=== PATIENT | female | born 1935 | race Native Hawaiian/Other Pacific Islander ===

== ENCOUNTER 2016-11-23 08:40 | Outpatient (CLI) | payer OTHER ==
[~2016-11-23 08:40] MED LIST: CODEINE/APAP1 TAB OR; CYCL10TA35 PO; ELIQUIS2.5 MG OR; OMEPRAZOLE20 M1 OR; ONDA4TAB3 PO; XANAX XR0.5 MG OR
[2016-11-23 08:55] LABS: PLATELET COUNT 307 K/uL (152-353)
[2016-11-23 09:19] LABS: POTASSIUM 3.9 mmol/L (3.6-5.2); SODIUM 141 mmol/L (136-145)
== END 2016-11-23 19:32 | disposition home or self-care (01) ==
LOC: LABW 08:40
PROVIDERS: Internal Medicine Cardiovascular Disease
DX: E78.4 Other hyperlipidemia (principal); I48.91 Unspecified atrial fibrillation; Z79.899 Other long term (current) drug therapy; Z51.81 Encounter for therapeutic drug level monitoring
CPT/HCPCS: 36415; 80048; 80061; 80076; 85027

== ENCOUNTER 2017-03-16 16:19 | Observation (INO) | payer OTHER ==
[~2017-03-16] VITALS: Ht 160 cm; Wt 98.9 kg
[2017-03-16] VITALS (9 sets, daily range): BP systolic 142–189; BP diastolic 86–98; TEMP 97.6–99.4; Ht 160 cm; Wt 98.9 kg
[2017-03-16 17:00] LABS: PLATELET COUNT 310 K/uL (152-353)
[2017-03-16 17:01] LABS: POTASSIUM 3.6 mmol/L (3.6-5.2)
--- NOTE | 2017-03-16 22:45 | NUR ---
RECEIVED 82 YEAR OLD WHITE FEMALE TO [facility] VIA WHEELCHAIR FROM MEDICAL SURGICAL FLOOR FOR TELEMETRY MONITORING. PT HAD BARIUM SWALLOW AND CONTRAST AT [facility] ON [id number] UNDER THE SERVICES OF DR. CAROLINE WILKERSON. PT STATES SUJATHA MC NURSE PRACTITIONER TOLD HER TO EXPEL THE BARIUM SOON POSSIBE. WHILE ON COMMODE AT HOME SHE GOT WEAK, FELT FAINT AND COULD NOT SPEAK. PT BROUGHT TO [facility] ER BY EMS. PT STATES EMS WAS ROUGH AND HURT HER LEFT ARM. PT HAS BRUISING TO RIGHT FOREARM AND STATES IT IS VERY SORE. PT AWAKE AND ALERT ON ADMISSION.
[2017-03-17] VITALS: BP 180/96; TEMP 98.7
--- NOTE | 2017-03-17 00:27 | NUR ---
PT RESTING WITH EYES CLOSED. PT MOANS IN SLEEP, SMILING OCCAS. RESP RATE EVEN AND UNLABORED.
--- NOTE | 2017-03-17 00:38 | NUR ---
TO BEDSIDE BORIS WITH ASSISTANCE FROM NURSES.
--- NOTE | 2017-03-17 00:52 | NUR ---
PT EATING ALVIN CRACKERS AND COKE.
--- NOTE | 2017-03-17 01:28 | NUR ---
PT RESTING QUIETLY AT PRESENT.
[2017-03-17 01:30] VITALS: BP 160/70
--- NOTE | 2017-03-17 02:01 | NUR ---
PT STATES CAN'T TAKE THE PAIN OF THE B/P CUFF AND CANNOT TAKE THE PAIN FROM THE HEP LOCK. B/P CUFF REMOVED. PT STATES IT MADE HER NOT BE ABLE TO BREATH AND CHEST HURT. O2 SATURATION 99. PT PLACED ON O2 AT 2 LITERS FOR COMFORT AND TO REDUCE ANXIETY. RESPIRATORY THERAPIST PRESENT EKG
--- NOTE | 2017-03-17 04:45 | NUR ---
PT TO BEDSIDE COMMODE WITH ASSITANCE FROM NURSE. VOIDED 200CC'S URINE
--- NOTE | 2017-03-17 04:53 | NUR ---
PT MOVED TO BEDSIDE CHAIR FOR COMFORT.
--- NOTE | 2017-03-17 04:55 | NUR ---
PT WATCHING T.V. AT PRESENT.
[2017-03-17 06:48] LABS: PLATELET COUNT 279 K/uL (152-353)
[2017-03-17 07:03] LABS: POTASSIUM 3.1 mmol/L (3.6-5.2); SODIUM 142 mmol/L (136-145)
[2017-03-17 08:00] VITALS: BP 137/65; TEMP 97.6
--- NOTE | 2017-03-17 10:00 | NUR ---
PT ASSISTED ONTO BSC, BM NOTED. PT ALSO HAS HEMRRHOID.
--- NOTE | 2017-03-17 11:18 | NUR ---
PT RANG FOR ASSISTANCE, PT ASSITED ONTO BSC TO VOID, TOLERATED WELL. PT ENCOURAGED TO DRINK, PT GIVEN SIPS OF WATER
--- NOTE | 2017-03-17 12:08 | NUR ---
FAMILY AT BS
[2017-03-17] MEDS ORDERED: PROTONIX20 MG PO (12:46)
[2017-03-17] MEDS ORDERED: ASA LOW DOSE81 MG PO (12:47)
[2017-03-17 13:00] VITALS: BP 123/77; TEMP 98
--- NOTE | 2017-03-17 13:10 | NUR ---
PT HOLLERING AND MOANING. STATES THAT SHE CAN NOT BREATH, PT CONT TOO DRINK WATER. PT IS POINTING TO THE EPI GASTRIC AREA, C/O PAIN, PT IS BURPING. PROTONIX GIVEN.
--- NOTE | 2017-03-17 13:30 | NUR ---
PT ASSISTED UP TO BSC, TOLERATED WELL. ONCE BACK INTO CHAIR, PT STATES THAT HER BACK IS HURING, ASKED IF I WOULD RUB HER BACK. PTS BACK RUBBED.
[2017-03-17] MEDS ORDERED: LORTAB 5-325 MG1 TAB PO (14:39)
[2017-03-17] MEDS ORDERED: ALPR0.5T24 PO (14:40)
[2017-03-17] MEDS ORDERED: METO50TA27 PO (14:42)
[2017-03-17] MEDS ORDERED: HYOS0.128 PO (14:48)
[2017-03-17] MEDS ORDERED: RANITIDINE 150150 MG PO (14:50)
[2017-03-17] MEDS ORDERED: CETIRIZINE10 MG PO (14:51)
[2017-03-17] MEDS ORDERED: CETI10TA PO (14:52)
--- NOTE | 2017-03-17 15:52 | NUR ---
DISCHARGE INSTRUCTIONS GIVEN. PT TAKEN OUT OF HOSP VIA W/C. INSTRUCTIONS ON HOW TO GET INTO CAR GIVEN, PT TOLERATED TRANSFER WELL
== END 2017-03-17 15:52 | disposition home or self-care (01) ==
LOC: ED 16:19 → MED/SURG 18:47 → ICU 22:35
PROVIDERS: Emergency Medicine; ADMIT Specialist
DX: I51.7 Cardiomegaly (principal); N39.0 Urinary tract infection, site not specified; R55 Syncope and collapse; E87.6 Hypokalemia; R73.9 Hyperglycemia, unspecified; R11.2 Nausea with vomiting, unspecified; D53.9 Nutritional anemia, unspecified; E88.09 Other disorders of plasma-protein metabolism, not elsewhere classified
CPT/HCPCS: 36415; 80053; 80307; 81000; 83735; 84100; 84484; 85027; 85379; 87077; 87086; 87088; 87186; 93005; 94760; 96360; 99220; 99285; G0378; G0479; J2060

== ENCOUNTER 2017-04-22 11:15 | Outpatient (CLI) | payer OTHER ==
[~2017-04-22 11:15] MED LIST changes: +ALPR0.5T24 PO; +ASA LOW DOSE81 MG PO; +CETI10TA PO; +CETIRIZINE10 MG PO; +HYOS0.128 PO; +LORTAB 5-325 MG1 TAB PO; +METO50TA27 PO; +PROTONIX20 MG PO; +RANITIDINE 150150 MG PO
== END 2017-04-22 19:58 | disposition home or self-care (01) ==
LOC: RAD 11:15
DX: M79.622 Pain in left upper arm (principal)

== ENCOUNTER 2017-06-12 12:18 | Emergency (ER) | payer OTHER ==
[~2017-06-12] VITALS: Ht 160 cm; Wt 96.2 kg
[2017-06-12 13:56] VITALS: BP 158/78; TEMP 98.4
== END 2017-06-12 13:56 | disposition home or self-care (01) ==
LOC: ED 12:18
DX: S80.02XA Contusion of left knee, initial encounter (principal); S80.12XA Contusion of left lower leg, initial encounter; S40.012A Contusion of left shoulder, initial encounter; S80.812A Abrasion, left lower leg, initial encounter; M17.12 Unilateral primary osteoarthritis, left knee; V89.0XXA Person injured in unspecified motor-vehicle accident, nontraffic, initial encounter; Y92.89 Other specified places as the place of occurrence of the external cause
CPT/HCPCS: 99283

== ENCOUNTER → 2017-10-25 09:08 | Outpatient (CLI) | payer OTHER | END | disposition home or self-care (01) | LOC: AMB 09:08 | DX: R06.02 Shortness of breath (principal); R05 Cough ==

== ENCOUNTER 2017-11-11 22:19 | Emergency (ER) | payer OTHER ==
[~2017-11-11] VITALS: Ht 160 cm; Wt 95.7 kg
[2017-11-12 00:10] LABS: PLATELET COUNT 271 K/uL (152-353)
[2017-11-12 00:20] LABS: POTASSIUM 3.4 mmol/L (3.6-5.2)
[2017-11-12 01:25] VITALS: BP 130/88; TEMP 97.3
== END 2017-11-12 01:30 | disposition home or self-care (01) ==
LOC: ED 22:19
DX: R11.0 Nausea (principal); R10.13 Epigastric pain; M16.0 Bilateral primary osteoarthritis of hip
CPT/HCPCS: 80053; 82150; 83690; 85027; 86318; 96372; 99283; J3410

== ENCOUNTER 2017-11-24 12:54 | Outpatient (CLI) | payer OTHER | END 2017-11-24 21:47 | disposition home or self-care (01) | LOC: US 12:54 | DX: M25.512 Pain in left shoulder (principal); R60.0 Localized edema ==

== ENCOUNTER 2018-06-10 10:50 | Outpatient (CLI) | payer OTHER | END 2018-06-10 22:18 | disposition home or self-care (01) | LOC: LAB 10:50 | DX: R19.7 Diarrhea, unspecified (principal) | CPT/HCPCS: 82272; 83630; 87015; 87045; 87328; 87329; 87899 ==

== ENCOUNTER → 2018-06-30 21:05 | Outpatient (CLI) | payer OTHER | END | disposition home or self-care (01) | LOC: AMB 21:05 | DX: J44.1 Chronic obstructive pulmonary disease with (acute) exacerbation (principal) ==

== ENCOUNTER 2019-11-10 10:07 | Outpatient (CLI) | payer OTHER ==
[2019-11-10 10:49] LABS: PLATELET COUNT 303 K/uL (152-353)
== END 2019-11-10 19:41 | disposition home or self-care (01) ==
LOC: CT 10:07
PROVIDERS: Internal Medicine
DX: R10.84 Generalized abdominal pain (principal)
CPT/HCPCS: 36415; 80053; 81000; 85027; 87077; 87086; 87088; 87186

== ENCOUNTER 2021-02-24 11:38 | Outpatient (CLI) | payer OTHER ==
[2021-02-24 12:19] LABS: PLATELET COUNT 264 K/uL (152-353)
[2021-02-24 12:37] LABS: POTASSIUM 4.3 mmol/L (3.6-5.2)
== END 2021-02-24 21:48 | disposition home or self-care (01) ==
LOC: LAB 11:38
PROVIDERS: ATTEND Internal Medicine
DX: I10 Essential (primary) hypertension (principal); I25.10 Atherosclerotic heart disease of native coronary artery without angina pectoris; E55.9 Vitamin D deficiency, unspecified; E53.8 Deficiency of other specified B group vitamins
CPT/HCPCS: 80053; 80061; 82306; 82607; 84439; 84443; 85027

== ENCOUNTER 2021-08-21 12:29 | Outpatient (CLI) | payer OTHER | END 2021-08-21 19:00 | disposition home or self-care (01) | LOC: LAB 12:29 | PROVIDERS: ATTEND Nurse Practitioner | DX: N39.0 Urinary tract infection, site not specified (principal); R30.0 Dysuria | CPT/HCPCS: 81000 ==

== ENCOUNTER 2021-08-26 11:22 | Outpatient (CLI) | payer OTHER ==
[2021-08-26 11:32] LABS: PLATELET COUNT 480 K/uL (152-353)
[2021-08-26 11:48] LABS: POTASSIUM 4.5 mmol/L (3.6-5.2)
== END 2021-08-26 19:01 | disposition home or self-care (01) ==
LOC: LAB 11:22
PROVIDERS: ATTEND Nurse Practitioner
DX: I11.0 Hypertensive heart disease with heart failure (principal); I50.9 Heart failure, unspecified; I25.10 Atherosclerotic heart disease of native coronary artery without angina pectoris; E11.9 Type 2 diabetes mellitus without complications; R82.998 Other abnormal findings in urine
CPT/HCPCS: 80053; 81000; 83880; 85027; 86140; 87077; 87086; 87088; 87185; 87186

== ENCOUNTER 2021-09-07 15:31 | Inpatient (IN) | payer OTHER ==
[~2021-09-07] VITALS: Ht 160 cm; Wt 95.3 kg
[2021-09-07] VITALS (9 sets, daily range): BP systolic 94–140; BP diastolic 15–97; TEMP 97.4–98.8; Ht 160 cm; Wt 95.3 kg
[~2021-09-07 15:31] MED LIST changes: +HYDROCODONE BIT1 TAB PO; -LORTAB 5-325 MG1 TAB PO
[2021-09-07 16:33] LABS: PLATELET COUNT 365 K/uL (152-353)
[2021-09-07 16:42] LABS: POTASSIUM 4.4 mmol/L (3.6-5.2)
[2021-09-07] MEDS ORDERED: MONTELUKAST SOD10 MG PO (18:47)
[2021-09-07] MEDS ORDERED: PANTOPRAZOLE SO40 M1 PO (18:47)
[2021-09-07] MEDS ORDERED: NITROFURANTOIN100 M1 PO (18:50)
[2021-09-07] MEDS ORDERED: ONDANSETRON HYDR4 MG PO (18:51)
[2021-09-07] MEDS ORDERED: CLEARLAX PO (18:54)
[2021-09-07] MEDS ORDERED: ZOLOFT25 MG PO (18:56)
[2021-09-07] MEDS ORDERED: METO-837 PO (19:03)
[2021-09-07] MEDS ORDERED: CLON0.5T36 PO (19:05)
[2021-09-08 05:28] LABS: PLATELET COUNT 366 K/uL (152-353)
[2021-09-08 06:34] LABS: POTASSIUM 4.1 mmol/L (3.6-5.2)
[2021-09-08 08:00] VITALS: BP 155/77; TEMP 97.4
[2021-09-08] MEDS ORDERED: FUROSEMIDE40 MG PO (11:59)
[2021-09-08 12:00] VITALS: BP 162/63; TEMP 97.9
[2021-09-08] MEDS ORDERED: SPIRONOLACT25 MG PO (12:00)
[2021-09-08] MEDS ORDERED: CYAN10009 IM (12:01)
[2021-09-08] MEDS ORDERED: DOCU100C10 PO (12:02)
[2021-09-08 16:00] VITALS: BP 128/83; TEMP 97.9
[2021-09-08 20:00] VITALS: BP 124/64; TEMP 97.6
[2021-09-09] VITALS: BP 155/70; TEMP 97.6
[2021-09-09 04:00] VITALS: BP 160/61; TEMP 97.3
[2021-09-09 05:14] LABS: PLATELET COUNT 291 K/uL (152-353)
[2021-09-09 05:22] LABS: POTASSIUM 3.9 mmol/L (3.6-5.2)
[2021-09-09 08:00] VITALS: BP 153/81; TEMP 98.6
[2021-09-09 12:00] VITALS: BP 155/38; TEMP 97.9
[2021-09-09 16:00] VITALS: BP 151/73; TEMP 97.8
[2021-09-09 20:00] VITALS: BP 110/76; TEMP 97.7
[2021-09-10] VITALS: BP 142/74; TEMP 97.7
[2021-09-10 04:00] VITALS: BP 145/71; TEMP 98.1
[2021-09-10 04:36] LABS: PLATELET COUNT 317 K/uL (152-353)
[2021-09-10 05:28] LABS: POTASSIUM 4.5 mmol/L (3.6-5.2)
[2021-09-10 08:00] VITALS: BP 139/62; TEMP 98.3
[2021-09-10] MEDS ORDERED: LEVAQUIN250 MG PO (12:24)
[2021-09-10] MEDS ORDERED: SODI1TAB PO (12:26)
== END 2021-09-10 17:51 | disposition home or self-care (01) | DRG 640 ==
LOC: ED 15:31 → MED/SURG 17:38
PROVIDERS: Emergency Medicine Emergency Medical Services; ADMIT Internal Medicine Endocrinology, Diabetes & Metabolism; ATTEND Internal Medicine Endocrinology, Diabetes & Metabolism
DX: E87.1 Hypo-osmolality and hyponatremia (principal); G92.8 Other toxic encephalopathy; N39.0 Urinary tract infection, site not specified; R06.09 Other forms of dyspnea; F41.8 Other specified anxiety disorders; I10 Essential (primary) hypertension; K21.9 Gastro-esophageal reflux disease without esophagitis; I48.91 Unspecified atrial fibrillation; B99.8 Other infectious disease
CPT/HCPCS: 36415; 80048; 80053; 81000; 82550; 83880; 84484; 85027; 87077; 87086; 87088; 87186; 87635; 93005; 94760; 96360; 96365; 96366; 96367; 96372; 96374; 96375; 99284; J0696; J1650; J2270; J2405; U0003

== ENCOUNTER 2021-09-25 10:16 | Outpatient (CLI) | payer OTHER ==
[~2021-09-25 10:16] MED LIST changes: +CLEARLAX PO; +CLON0.5T36 PO; +CYAN10009 IM; +DOCU100C10 PO; +FUROSEMIDE40 MG PO; +LEVAQUIN250 MG PO; +METO-837 PO; +MONTELUKAST SOD10 MG PO; +NITROFURANTOIN100 M1 PO; +ONDANSETRON HYDR4 MG PO; +PANTOPRAZOLE SO40 M1 PO; +SODI1TAB PO; +SPIRONOLACT25 MG PO; +ZOLOFT25 MG PO
[2021-09-25 10:41] LABS: PLATELET COUNT 347 K/uL (152-353)
[2021-09-25 11:04] LABS: POTASSIUM 4.3 mmol/L (3.6-5.2)
== END 2021-09-25 19:13 | disposition home or self-care (01) ==
LOC: LAB 10:16
PROVIDERS: ATTEND Nurse Practitioner Family
DX: I10 Essential (primary) hypertension (principal); I50.9 Heart failure, unspecified; R06.09 Other forms of dyspnea; E55.9 Vitamin D deficiency, unspecified; E53.8 Deficiency of other specified B group vitamins
CPT/HCPCS: 80053; 80061; 82306; 82607; 82746; 83880; 84439; 84443; 85027

== ENCOUNTER 2021-10-30 10:50 | Outpatient (CLI) | payer OTHER ==
[2021-10-30 12:12] LABS: POTASSIUM 4.5 mmol/L (3.6-5.2)
[2021-10-30 12:27] LABS: PLATELET COUNT 312 K/uL (152-353)
== END 2021-10-30 19:15 | disposition home or self-care (01) ==
LOC: LAB 10:50
PROVIDERS: ATTEND Internal Medicine
DX: N39.0 Urinary tract infection, site not specified (principal); I50.9 Heart failure, unspecified; I25.10 Atherosclerotic heart disease of native coronary artery without angina pectoris; E11.9 Type 2 diabetes mellitus without complications; R11.0 Nausea; I11.0 Hypertensive heart disease with heart failure
CPT/HCPCS: 80053; 81000; 85027; 87077; 87086; 87088; 87186

== ENCOUNTER 2021-11-26 11:09 | Outpatient (CLI) | payer OTHER ==
[2021-11-26 12:32] LABS: PLATELET COUNT 318 K/uL (152-353)
== END 2021-11-26 19:39 | disposition home or self-care (01) ==
LOC: LAB 11:09
PROVIDERS: ATTEND Nurse Practitioner
DX: I10 Essential (primary) hypertension (principal); E11.9 Type 2 diabetes mellitus without complications; I25.10 Atherosclerotic heart disease of native coronary artery without angina pectoris; R82.998 Other abnormal findings in urine
CPT/HCPCS: 80053; 81000; 85027; 87077; 87086; 87088; 87186

== ENCOUNTER 2021-12-22 14:18 | Outpatient (CLI) | payer OTHER ==
[2021-12-22 14:27] LABS: PLATELET COUNT 349 K/uL (152-353)
[2021-12-22 14:53] LABS: POTASSIUM 4.4 mmol/L (3.6-5.2)
== END 2021-12-22 19:25 | disposition home or self-care (01) ==
LOC: LAB 14:18
PROVIDERS: ATTEND Internal Medicine
DX: I10 Essential (primary) hypertension (principal); E11.9 Type 2 diabetes mellitus without complications
CPT/HCPCS: 80053; 81000; 85027

== ENCOUNTER 2022-01-20 10:37 | Outpatient (CLI) | payer OTHER ==
[2022-01-20 10:53] LABS: PLATELET COUNT 298 K/uL (152-353)
[2022-01-20 11:23] LABS: POTASSIUM 4.3 mmol/L (3.6-5.2)
== END 2022-01-20 19:02 | disposition home or self-care (01) ==
LOC: LAB 10:37
PROVIDERS: ATTEND Internal Medicine
DX: I11.0 Hypertensive heart disease with heart failure (principal); I50.9 Heart failure, unspecified; F41.8 Other specified anxiety disorders; F32.9 Major depressive disorder, single episode, unspecified
CPT/HCPCS: 80053; 81000; 85027

== ENCOUNTER 2022-02-19 09:58 | Outpatient (CLI) | payer OTHER ==
[~2022-02-19 09:58] MED LIST changes: +ALBUTEROL0.63 MG/3 INH; +PRED10TA27 PO
[2022-02-19 10:21] LABS: POTASSIUM 4.8 mmol/L (3.6-5.2)
[2022-02-19 10:28] LABS: PLATELET COUNT 259 K/uL (152-353)
== END 2022-02-19 18:56 | disposition home or self-care (01) ==
LOC: LAB 09:58
PROVIDERS: ATTEND Nurse Practitioner
DX: I11.0 Hypertensive heart disease with heart failure (principal); I50.9 Heart failure, unspecified; I25.10 Atherosclerotic heart disease of native coronary artery without angina pectoris; E11.9 Type 2 diabetes mellitus without complications; R82.998 Other abnormal findings in urine
CPT/HCPCS: 80053; 81000; 85027; 87077; 87086; 87088; 87186

== ENCOUNTER 2022-03-17 11:03 | Outpatient (CLI) | payer OTHER ==
[2022-03-17 11:20] LABS: PLATELET COUNT 287 K/uL (152-353)
[2022-03-17 11:34] LABS: POTASSIUM 4.7 mmol/L (3.6-5.2)
== END 2022-03-17 20:38 | disposition home or self-care (01) ==
LOC: LAB 11:03
PROVIDERS: ATTEND Internal Medicine
DX: I11.0 Hypertensive heart disease with heart failure (principal); I50.9 Heart failure, unspecified; I25.10 Atherosclerotic heart disease of native coronary artery without angina pectoris; E11.9 Type 2 diabetes mellitus without complications
CPT/HCPCS: 80053; 81002; 81015; 85027

== ENCOUNTER 2022-04-15 09:50 | Outpatient (CLI) | payer OTHER ==
[2022-04-15 10:01] LABS: PLATELET COUNT 327 K/uL (152-353)
[2022-04-15 10:16] LABS: POTASSIUM 4.5 mmol/L (3.6-5.2)
== END 2022-04-15 19:18 | disposition home or self-care (01) ==
LOC: LAB 09:50
PROVIDERS: ATTEND Nurse Practitioner
DX: I10 Essential (primary) hypertension (principal); E11.9 Type 2 diabetes mellitus without complications; I25.10 Atherosclerotic heart disease of native coronary artery without angina pectoris; R82.998 Other abnormal findings in urine
CPT/HCPCS: 80053; 81002; 81015; 85027; 87077; 87086; 87088; 87186

== ENCOUNTER 2022-05-11 12:11 | Outpatient (CLI) | payer OTHER ==
[2022-05-11 12:46] LABS: PLATELET COUNT 312 K/uL (152-353)
[2022-05-11 12:50] LABS: POTASSIUM 4.4 mmol/L (3.6-5.2)
== END 2022-05-11 18:54 | disposition home or self-care (01) ==
LOC: LAB 12:11
PROVIDERS: ATTEND Nurse Practitioner
DX: I11.0 Hypertensive heart disease with heart failure (principal); I50.9 Heart failure, unspecified; F41.9 Anxiety disorder, unspecified; F32.9 Major depressive disorder, single episode, unspecified; I25.10 Atherosclerotic heart disease of native coronary artery without angina pectoris; E11.9 Type 2 diabetes mellitus without complications; R82.998 Other abnormal findings in urine
CPT/HCPCS: 80053; 81002; 81015; 85027; 87088